=== PATIENT | male | born 2000 | race Caucasian/White ===

== ENCOUNTER 2020-02-18 07:51 | Outpatient (REF) | payer OTHER, SELFPAY | END 2020-02-18 07:52 | disposition home or self-care (01) | LOC: HO.LAB 07:51 | PROVIDERS: PCP Internal Medicine; Visit Provider Internal Medicine | DX: Z20.828 Contact with and (suspected) exposure to other viral communicable diseases (principal) | CPT/HCPCS: C9803; U0003 ==

== ENCOUNTER 2020-05-07 16:27 | Outpatient (REF) | payer OTHER, SELFPAY ==
--- NOTE | ~2020-05-07 | XR_ITS ---
EXAMINATION: XR ABDOMEN KUB CLINICAL INDICATION: R10.9 - Unspecified abdominal pain COMPARISON: None TECHNIQUE: 2 views of the abdomen are obtained. FINDINGS: There is gaseous distention of the stomach with retained contents suggested left upper quadrant. There is moderate stool throughout the colon down to the rectum. There is no gaseous dilatation of the small or large bowel. No visible urinary tract calculi. Bony structures are unremarkable. XR/XR KUB IMPRESSION: 1. Gaseous distention of the stomach with probable retained contents. 2. Moderate stool throughout colon down to rectum. No small or large bowel distention.
== END 2020-05-07 16:28 | disposition home or self-care (01) ==
LOC: HO.HMGCX 16:27
PROVIDERS: PCP Internal Medicine; Visit Provider Nurse Practitioner Family
DX: R10.9 Unspecified abdominal pain (principal)
CPT/HCPCS: 74018

== ENCOUNTER 2021-03-09 10:25 | Outpatient (REF) | payer OTHER, SELFPAY | END 2021-03-09 10:26 | disposition home or self-care (01) | LOC: HO.HMGCLDS 10:25 | PROVIDERS: Visit Provider Internal Medicine | DX: Z20.822 Contact with and (suspected) exposure to COVID-19 (principal) | CPT/HCPCS: C9803; U0003; U0005 ==

== ENCOUNTER 2021-10-14 17:10 | Emergency (ER) | payer OTHER, SELFPAY ==
[2021-10-14 17:48] VITALS: BP 117/73; PULSE 70; RESP 18; TEMP 37.6; O2SAT 97; BMI 16.9
[2021-10-14 18:08] LABS: Appearance Urine CLEAR; Color Urine YELLOW; Glucose Urine UA NEG (NEG); Leukocyte Esterase Urine NEG (NEG); Nitrite Urine NEG (NEG); Urine Blood NEG (NEG); Urine Ketones NEG (NEG); Urine Protein NEG (NEG-TRACE)
[2021-10-14 18:23] LABS: Hematocrit 44.8 % (42.0-52.0); Hemoglobin 14.6 g/dl (14.0-18.0); Mean Corpuscular HGB Conc 32.6 g/dl (31.0-36.0); Mean Corpuscular Hemoglobin 26.6 pg (27.0-33.0); Mean Corpuscular Volume 81.8 fL (80.0-98.0); Mean Platelet Volume 9.7 fL (9.4-12.4); Platelet Count 304 X10*3/uL (160-400); Red Blood Count 5.48 X10*6/uL (4.60-5.80); Red Cell Distribution Width 13.6 % (11.0-16.0); White Blood Count 6.9 X10*3/uL (4.8-10.8)
[2021-10-14 18:32] LABS: Alanine Aminotransferase 222 U/L (0-40); Albumin Level 4.5 g/dL (3.5-5.0); Alkaline Phosphatase 78 U/L (39-117); Anion Gap 13 (12-20); Aspartate Amino Transferase 105 U/L (5-37); Bilirubin Total 0.6 mg/dL (0.0-1.0); Blood Urea Nitrogen 14 mg/dL (9-16); Calcium 9.3 mg/dL (8.4-10.2); Carbon Dioxide 26 mmol/L (22-29); Chloride 103 mmol/L (96-108); Creatinine Clr Calc Pharmacy 85.9; Estimated Glomerular Filt Rate > 60; Glucose Random 93 mg/dL (60-115); Lipase 30 U/L (8-78); Potassium 3.9 mmol/L (3.3-5.1); Sodium 138 mmol/L (135-145); Total Protein 8.4 g/dL (6.5-8.0)
[2021-10-14 19:09] LABS: Atypical Lymph Absolute Manual 1.3 x10*3/uL; Atypical Lymphs Percent Manual 19 % (0-6); Band Neutrophils Percent 0 % (3-5); Basophils Abs Manual 0.1 X10*3/uL (0.0-0.2); Basophils Percent Manual 1 % (0-2); Eosinophils Absolute Manual 0.1 X10*3/uL (0.0-0.4); Eosinophils Percent Manual 1 % (0-4); Lymphocytes Absolute Manual 2.3 X10*3/uL (1.2-4.9); Lymphocytes Percent Manual 33 % (20-40); Microcytosis 1+ (5-14) /OIF; Monocytes Absolute Manual 1.1 X10*3/uL (0.1-1.2); Monocytes Percent Manual 16 % (2-11); Neutrophils Absolute Manual 2.1 X10*3/uL (2.0-8.3); Neutrophils Percent Manual 30 % (45-73); Platelet Estimate NORMAL (NORMAL); Platelet Morphology Comment NORMAL; RBC Morphology NOTED
[2021-10-14 19:10] LABS: Burr Cells 1+ (0-2) /OIF; Ovalocytes 1+ (5-14) /OIF; Smudge Cells PRESENT; Tear Drop Cells 1+ (0-2) /OIF
[2021-10-14 20:57] LABS: SLIDE REVIEW VERIFIED
== END 2021-10-15 02:13 | disposition left against medical advice (07) ==
PROVIDERS: Emergency Provider Emergency Medicine; PCP Internal Medicine
DX: R10.10 Upper abdominal pain, unspecified (principal)
CPT/HCPCS: 36415; 80053; 81003; 83690; 85007; 85025; 85027; 99282; 99283

== ENCOUNTER 2023-08-15 12:29 | Outpatient (AMB) | payer OTHER, SELFPAY ==
[2023-08-15 13:12] VITALS: BP 120/72; PULSE 51; TEMP 36.6; O2SAT 96; BMI 16.9
--- NOTE | 2023-08-15 13:12 | AM.OFFWIN_ITS ---
Intake Vital Signs 08/15/23 13:12 Height 5 ft 11 in Weight 121 lb BMI 16.9 BP 120/72 Blood Pressure Location Lt brachial Position Sitting Pulse 51 Pulse Source Pulse Oximeter Temp 97.8 F Temp Source Temporal Artery Scan Pulse Oximetry (%) 96 Oxygen Delivery Method Room Air Intake Visit Reasons: EP Burning/discomfort sensation upper GI Intake Note: pt is here today for buring discomfort sensation upper GI started tuesday Patient Tobacco Use Status: Never used Tobacco Allergies No Known Allergies Allergy (Verified 08/15/23 13:15) Do you need a note to return to daycare/school/sports/work: Yes HPI HPI Comments History of Present Illness Details Patient is a 23-year-old male complaining of burning in his upper chest for 2 days. He denies any increase in gas, nausea vomiting or diarrhea. He states he used to take omeprazole daily because he was diagnosed with GERD but he has been off of it for a long period of time. He does admit to a diet of mostly fast food, soda and fried foods. He has not tried any [id number]-[id number] medications to make his symptoms better. States Dr. Youssef is his primary care doctor [facility] Social History Patient Tobacco Use Status: Never used Tobacco Review of Systems Const All systems reviewed & are unremarkable except as noted in HPI and below Physical Exam Vital Signs: Last Vital Signs Temp 97.8 F 08/15/23 13:12 Pulse 51 08/15/23 13:12 BP 120/72 08/15/23 13:12 Pulse Ox 96 08/15/23 13:12 Oxygen Delivery Method Room Air 08/15/23 13:12 BMI result Body Mass Index 16.9 Const General: cooperative, healthy appearing, comfortable, no acute distress and well developed Orientation/consciousness: patient oriented x3 Limitations: no limitations HEENT Head: Yes normal to inspection Eyes General: appearance normal, both eyes and all related structures Neck Neck: Yes normal visual inspection and Yes full ROM Resp Effort & Inspection: normal respiratory effort and able to speak in complete sentences Skin General skin exam: no rashes or lesions noted Neuro General: patient oriented x3 Extrem General: Yes normal to inspection Assessment & Plan Assessment & Plan (1) GERD (gastroesophageal reflux disease): Code(s): K21.9 - Gastro-esophageal reflux disease without esophagitis Plan: Gave patient prescription for 30 days of omeprazole and recommended improving his diet by eating less fast food, fried foods and soda and following up with his PCP, Dr. Youssef. Plan see above Medications: New omeprazole 20 mg PO DAILY 30 caps 0RF Coding Level of Care Code Est Pt Level 3 (47311) Diagnoses GERD (gastroesophageal reflux disease) K21.9
== END 2023-08-15 13:39 | disposition home or self-care (01) ==
PROVIDERS: PCP Internal Medicine; Visit Provider Physician Assistant
DX: K21.9 Gastro-esophageal reflux disease without esophagitis (principal)
CPT/HCPCS: 99213

== ENCOUNTER 2023-11-18 14:01 | Outpatient (AMB) | payer OTHER, SELFPAY ==
[2023-11-18 14:05] VITALS: BP 106/74; PULSE 62; TEMP 37.1; O2SAT 99; BMI 17.3
--- NOTE | 2023-11-18 14:05 | MHC.OFFWIV ---
Intake Vital Signs 11/18/23 14:05 Height 5 ft 11 in Weight 124 lb BMI 17.3 BP 106/74 Blood Pressure Location Lt brachial Position Sitting Pulse 62 Pulse Source Pulse Oximeter Temp 98.8 F Temp Source Oral Pulse Oximetry (%) 99 Oxygen Delivery Method Room Air Intake Visit Reasons: EP sore throat, chest tightness Intake Note: pt c/o sore throat and chest tightness. Started yesterday Patient Tobacco Use Status: Never used Tobacco Allergies No Known Allergies Allergy (Verified 11/18/23 14:06) Do you need a note to return to daycare/school/sports/work: Yes HPI HPI Comments History of Present Illness Details Patient is a 23-year-old male with a past medical history of asthma who use a rescue inhaler complaining of 2 days of a sore throat, a dry cough and chest tightness when he coughs. He states a co-worker was diagnosed with COVID recently and he was around this co-worker. He denies any sinus pain, ear pain, headaches, shortness of breath or fevers. He denies any head congestion or chest congestion and tells me he does have an albuterol inhaler at home that is not but he has not had to use it. [facility] Social History Patient Tobacco Use Status: Never used Tobacco Review of Systems Const All systems reviewed & are unremarkable except as noted in HPI and below Physical Exam Vital Signs: Last Vital Signs Temp 98.8 F 11/18/23 14:05 Pulse 62 11/18/23 14:05 BP 106/74 11/18/23 14:05 Pulse Ox 99 11/18/23 14:05 Oxygen Delivery Method Room Air 11/18/23 14:05 BMI result Body Mass Index 17.3 Const General: cooperative, healthy appearing, comfortable and no acute distress Orientation/consciousness: patient oriented x3 Limitations: no limitations HEENT Head: Yes normal to inspection Ears: hearing grossly normal bilaterally, external ears normal and TM's normal bilaterally (Scarring on right tympanic membrane) General nose exam: Normal external nose present, Normal nares present and No nasal discharge present Face and sinus: Yes normal facial exam and Yes sinuses nontender Mouth: Normal oral and palatal mucosa present and moist mucous membranes Throat: Yes tonsils normal, Yes uvula midline and Yes posterior oropharynx abnormal (Erythema) Eyes General: appearance normal, both eyes and all related structures Neck Neck: Yes normal visual inspection Resp Effort & Inspection: normal respiratory effort, able to speak in complete sentences, Actively coughing, no respiratory distress, not tachypneic, no tripod positioning and no use of accessory muscles Auscultation: clear to auscultation bilaterally Cardio Rate: regular rate Rhythm: regular rhythm Heart sounds: normal S1 and S2 Skin General skin exam: no rashes or lesions noted Neuro General: patient oriented x3 Extrem General: Yes normal to inspection and Yes no clubbing, cyanosis or edema Results AMB Rapid Strep AMB Rapid Strep Negative Last Edit by Emir Rothamn CMA on 11/18/23 14:20 Results Reviewed Results Reviewed: Laboratory Last Values Strep Scn Rapid Clinic Negative 11/18/23 14:19 Assessment & Plan Assessment & Plan (1) URI (upper respiratory infection): Code(s): J06.9 - Acute upper respiratory infection, unspecified Qualifiers: URI type: unspecified URI Qualified Code(s): J06.9 - Acute upper respiratory infection, unspecified Plan: Vital signs are stable, rapid strep in office was negative, no exudates on exam, lungs are also clear and patient is well-appearing. Recommended he wear a mask when he is around other people until he has a test results for the flu COVID and RSV. Likely a mild viral syndrome. Recommended he use [id number] medications to treat his symptoms as well as his inhaler when he is feeling that chest tightness Plan See above Orders: Orders SARS-CoV2/FLU/RSV Today J06.9 - Acute upper respiratory infection, unspecified AMB Rapid Strep Screen Today Z13.9 - Encounter for screening, unspecified Coding Level of Care Code Est Pt Level 3 (68372) Diagnoses Upper respiratory tract infection, unspecified type J06.9 URI type: unspecified URI
== END 2023-11-18 14:40 | disposition home or self-care (01) ==
PROVIDERS: PCP Internal Medicine; Visit Provider Physician Assistant
DX: J06.9 Acute upper respiratory infection, unspecified (principal); J02.9 Acute pharyngitis, unspecified
CPT/HCPCS: 87880; 99213

== ENCOUNTER 2023-11-18 14:19 | Outpatient (REF) | payer OTHER, SELFPAY ==
[2023-11-18 16:47] LABS: Influenza A PCR NEGATIVE (Negative); Influenza B PCR NEGATIVE (Negative); Resp Syncy Virus RNA Qual PCR NEGATIVE (Negative); SARS COV2 PCR INHOUSE NEGATIVE (Negative)
== END 2023-11-18 14:20 | disposition home or self-care (01) ==
LOC: HO.LAB 14:19
PROVIDERS: Visit Provider Physician Assistant
DX: J06.9 Acute upper respiratory infection, unspecified (principal)
CPT/HCPCS: 0241U

== ENCOUNTER 2023-11-23 10:40 | Outpatient (AMB) | payer OTHER, SELFPAY ==
[2023-11-23 10:45] VITALS: BP 102/74; PULSE 54; TEMP 36.9; O2SAT 99; BMI 17.3
--- NOTE | 2023-11-23 10:45 | MHC.OFFWIV ---
Intake Vital Signs 11/23/23 10:45 Height 5 ft 11 in Weight 124 lb BMI 17.3 BP 102/74 Blood Pressure Location Lt brachial Position Sitting Pulse 54 Pulse Source Pulse Oximeter Temp 98.4 F Temp Source Oral Pulse Oximetry (%) 99 Oxygen Delivery Method Room Air Intake Visit Reasons: EP headache, congestion, chest pressure, cough Intake Note: pt c/o headache, congestion, chest pressure and cough. Started last Tuesday. Covid Negative on 11/17 Patient Tobacco Use Status: Never used Tobacco Allergies No Known Allergies Allergy (Verified 11/23/23 10:45) Do you need a note to return to daycare/school/sports/work: Yes HPI HPI Comments History of Present Illness Details Patient is a 23-year-old male with a past medical history of asthma complaining of continued productive cough, shortness of, subjective fevers, fatigue and headaches. 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 He was tested for COVID on November 17 and was negative however her symptoms are getting worse. He is able to use his inhaler when he feels short of breath with great relief. He is able to eat and drink as well. He denies any nausea vomiting or diarrhea ear pain or sinus pain. [facility] Social History Patient Tobacco Use Status: Never used Tobacco Review of Systems Const All systems reviewed & are unremarkable except as noted in HPI and below Physical Exam Vital Signs: Last Vital Signs Temp 98.4 F 11/23/23 10:45 Pulse 54 11/23/23 10:45 BP 102/74 11/23/23 10:45 Pulse Ox 99 11/23/23 10:45 Oxygen Delivery Method Room Air 11/23/23 10:45 BMI result Body Mass Index 17.3 Const General: cooperative, healthy appearing, comfortable and no acute distress Orientation/consciousness: patient oriented x3 Limitations: no limitations HEENT Head: Yes normal to inspection Ears: hearing grossly normal bilaterally and external ears normal General nose exam: Normal external nose present, Normal nares present and No nasal discharge present Face and sinus: Yes normal facial exam and Yes sinuses nontender Mouth: Normal oral and palatal mucosa present and moist mucous membranes Throat: Yes tonsils normal, Yes uvula midline and Yes posterior oropharynx abnormal (Erythema) Eyes General: appearance normal, both eyes and all related structures Neck Neck: Yes normal visual inspection Resp Effort & Inspection: normal respiratory effort, able to speak in complete sentences, no respiratory distress, not tachypneic, no tripod positioning and no use of accessory muscles Auscultation: clear to auscultation bilaterally Cardio Rate: regular rate Rhythm: regular rhythm Heart sounds: normal S1 and S2 Skin General skin exam: no rashes or lesions noted Neuro General: patient oriented x3 Extrem General: Yes normal to inspection and Yes no clubbing, cyanosis or edema Assessment & Plan Assessment & Plan (1) URI (upper respiratory infection): Code(s): J06.9 - Acute upper respiratory infection, unspecified Qualifiers: URI type: unspecified URI Qualified Code(s): J06.9 - Acute upper respiratory infection, unspecified Plan: Vital signs are stable, patient is well-appearing, physical exam was unremarkable. We did retested for flu COVID and RSV and recommended adding Mucinex. Recommended continuing to use his inhaler as needed. Wrote work note to keep him out of work for the next 3 business days which brings him into the weekend back to work on November 27. Plan see above Coding Level of Care Code Est Pt Level 3 (25002) Diagnoses Upper respiratory tract infection, unspecified type J06.9 URI type: unspecified URI
== END 2023-11-23 11:13 | disposition home or self-care (01) ==
PROVIDERS: PCP Internal Medicine; Visit Provider Physician Assistant
DX: J06.9 Acute upper respiratory infection, unspecified (principal)

== ENCOUNTER 2023-11-23 10:40 | Outpatient (REF) | payer OTHER, SELFPAY ==
[2023-11-23 13:57] LABS: Influenza A PCR NEGATIVE (Negative); Influenza B PCR NEGATIVE (Negative); Resp Syncy Virus RNA Qual PCR NEGATIVE (Negative); SARS COV2 PCR INHOUSE NEGATIVE (Negative)
== END 2023-11-23 10:41 | disposition home or self-care (01) ==
LOC: HO.LAB 10:40
PROVIDERS: PCP Internal Medicine; Visit Provider Physician Assistant
DX: J06.9 Acute upper respiratory infection, unspecified (principal)
CPT/HCPCS: 0241U

== ENCOUNTER 2024-05-01 11:01 | Outpatient (AMB) | payer OTHER, SELFPAY ==
--- NOTE | 2024-05-01 11:17 | AM.OFFWIN_ITS ---
Intake Vital Signs 05/01/24 11:22 Weight 125 lb BP 104/68 Blood Pressure Location Lt brachial Position Sitting Pulse 58 Pulse Source Pulse Oximeter Pulse Oximetry (%) 98 Oxygen Delivery Method Room Air Intake Visit Reasons: EP very lightheaded, dizzy, weakness Intake Note: Patient here for dizzy, weakness and lightheaded that started today. He states he was at work and felt like this overwhelming hot flash and began to start to feel weak. Patient Tobacco Use Status: Never used Tobacco Allergies No Known Allergies Allergy (Verified 05/01/24 11:22) Do you need a note to return to daycare/school/sports/work: No HPI HPI Comments History of Present Illness Details History of Present Illness - The patient is a 24-year-old male pres enting with symptoms of dizziness, headache, and difficulty focusing vision. - Symptoms started 1 hour post-breakfast , which was heavy and carb-rich. - Experienced dizziness, headache, and f oggy vision lasting 45 minutes to an hour. - Drinking water alleviated dizziness, b ut headache and vision issues prolonged. - No associated symptoms like cough, fev er, cough, leg or arm weakness, nausea, vomiting, or diarrhea reported. - No personal or immediate family histor y of diabetes however 2 grandparents had diabetes with unknown type 1 or type 2. - No prior similar episodes reported, an d felt fine and back to his normal self at the time of visit. Physical Exam General: Cooperative, healthy appearing, comfortable, no acute distress and well developed Orientation: Patient oriented x3 Limitations: No limitations Head: Normal to inspection Ears: Hearing grossly normal bilaterally Nose: Normal external nose present Face and sinus: Normal facial exam Eyes: Appearance normal, both eyes and all related structures Neck: Normal visual inspection and Yes full ROM Respiratory: Normal respiratory effort and able to speak in complete sentences. Skin: No rashes or lesions noted Neuro: Patient oriented x3 Extremities: Normal to inspection [facility] Social History Patient Tobacco Use Status: Never used Tobacco Review of Systems Const All systems reviewed & are unremarkable except as noted in HPI and below Physical Exam Vital Signs: Last Vital Signs Pulse 58 05/01/24 11:22 BP 104/68 05/01/24 11:22 Pulse Ox 98 05/01/24 11:22 Oxygen Delivery Method Room Air 05/01/24 11:22 Neuro General: CN's II-XI intact bilaterally Cognition (Neuro): normal cognition Gait exam (Neuro): Normal gait present Results AMB Random Glucose (hemocue) AMB Random Glucose (hemocue) 96 mg/dL Last Edit by YAJAIRA Jordan 05/01/24 12:02 Assessment & Plan Assessment & Plan (1) Hypoglycemia: Code(s): E16.2 - Hypoglycemia, unspecified Plan: VSS, pt well appearing, POC in office (3 hrs post-prandial and 2 hours post- episode) is 96. The suspected issue is hypoglycemia, potentially triggered by a carbohydrate-heavy breakfast leading to an insulin surge. The dietary intake and symptoms point towards low blood sugar, absent other alarming symptoms like infection or weakness. Advised that patient try to eat equal parts protein and fat and carbs at each meal and eat consistently, timing zamora. If he feels this again he can try a simple carb like OJ or jelly beans. If his symptoms worsen or he has visual changes, he should go to the emergency department. He should also follow up with his PCP if his symptoms continue. Patient was informed and verbally consented to the use of an ambient scribe for clinic note documentation during this visit. Orders: Orders AMB Random Glucose (hemocue) Today Z13.9 - Encounter for screening, unspecified Coding Level of Care Code Est Pt Level 4 (37179) Diagnoses Hypoglycemia E16.2
[2024-05-01 11:22] VITALS: BP 104/68; PULSE 58; O2SAT 98
== END 2024-05-01 12:23 | disposition home or self-care (01) ==
PROVIDERS: PCP Internal Medicine; Visit Provider Physician Assistant
DX: E16.2 Hypoglycemia, unspecified (principal); Z13.9 Encounter for screening, unspecified

== ENCOUNTER → 2024-05-01 11:01 | Outpatient (BNVA) | payer OTHER, SELFPAY | PROVIDERS: PCP Internal Medicine | DX: E16.2 Hypoglycemia, unspecified (principal) | CPT/HCPCS: 82948 ==

== ENCOUNTER 2024-08-18 09:02 | Outpatient (AMB) | payer OTHER, SELFPAY ==
[2024-08-18 09:08] VITALS: BP 104/70; PULSE 72; TEMP 36.7; O2SAT 98; BMI 16.9
--- NOTE | 2024-08-18 09:08 | AM.OFFWIN_ITS ---
Intake Vital Signs 3 08/18/24 09:08 Height 5 ft 11 in Weight 121 lb BMI 16.9 BP 104/70 Blood Pressure Location Rt brachial Position Sitting Pulse 72 Pulse Source Pulse Oximeter Temp 98.0 F Temp Source Oral Pulse Oximetry (%) 98 Oxygen Delivery Method Room Air Intake Visit Reasons: EP RT leg pain, into upper calf Patient Tobacco Use Status: Never used Tobacco Accompanied by: Self / Same As Patient Allergies No Known Allergies Allergy (Verified 08/18/24 09:12) Medication List - Last Reconciled 08/18/24 by Diamond Vale [facility]- albuterol sulfate 90 mcg/actuation (ProAir HFA) 2 puffs inhalation Q6H PRN ibuprofen mg PO PRN omeprazole 20 mg PO DAILY PRN Do you need a note to return to daycare/school/sports/work: Yes HPI HPI Comments 2 History of Present Illness0 Details History of Present Illness - The patient is a 24-year-old male pres enting with right leg pain. - Pain started two weeks ago, located in the posterior upper thigh and radiating to back of the knee - No preceding injury reported. - Suspected initial sciatica symptoms no cristino. - Nighttime sharp pain, impairs ability to stretch leg and maintain balance. - No fever, chills, or back pain reporte d. - Topical creams applied, no significant relief. - No swelling or prior surgery on the ri ght leg. Review of Systems - Musculoskeletal: Reports right leg dar n radiating from thigh to calf. Denies swelling. - General: Denies fever and chills. - Neurological: Denies low back pain. Physical Exam General: Thin, frail, NAD . Head: Normocephalic, atraumatic. Eyes: Pupils are equal, round and reactive to light and accommodation. Musculoskeletal: RLE: No swelling noted. No pain when performing a bridge exercise. No rash or bruising observed. Pulses: Peripheral pulses are equal and palpable bilaterally. Extremities: No clubbing, cyanosis nor edema is noted. Psych: Mood and affect appropriate. Diagnostic results See below femoroacetabular impingement Discussion Notes Uncertain etiology of his pain. We agreed on conducting an X-ray of the right hip and pelvis to evaluate any underlying issues. I set up the patient's access to the patient portal to facilitate viewing results and follow-up plans. I explained the process for obtaining the X-ray and the significance of looking for abnormalities. If the X-ray is normal, we will further evaluate the cause of pain. I also addressed the option of prescribing medication for discomfort after reviewing the imaging results. Follow-up care will be communicated via the patient portal. Assessment and Plan 1. Right leg pain - X-ray of right hip and pelvis ordered. - Patient portal set up for result revie w. - Further evaluation based on X-ray outc ome. - Consider orthopedic referral if indica cristino. 2. femoroacetabular impingement Refer to PT NSAIDs Supportive Care Patient Instructions - If pain worsens or you have any questi ons, call the clinic. Consent Patient was informed and verbally consented to the use of an ambient scribe for clinic note documentation during this visit. Total time spent caring for the patient today was 30 minutes. This includes time spent before the visit reviewing the chart, time spent during the visit, and time spent after the visit on documentation, reviewing laboratory results, diagnostic imaging, medications, performing a medically necessary evaluation, counseling on diagnoses, care coordination, ordering appropriate tests, ordering appropriate medications, review of tests performed by other providers, reporting test results with the patient, communication with other healthcare providers. [facility] Social History Patient Tobacco Use Status: Never used Tobacco Physical Exam Vital Signs: Last Vital Signs Temp 98.0 F 08/18/24 09:08 Pulse 72 08/18/24 09:08 BP 104/70 08/18/24 09:08 Pulse Ox 98 08/18/24 09:08 Oxygen Delivery Method Room Air 08/18/24 09:08 BMI result Body Mass Index 16.9 General: Yes no CVA tenderness Back/Spine/Pelvis Back: no CVA tenderness Thoracic/Lumbar Spine: thoracic and lumbar spine normal to inspection Sacroiliac joints: bilaterally nontender Back/spine/pelvis image: 2 1. pain with palpation and gluteal contraction 2. pain with SLR Results Reviewed Results Reviewed: [facility] [place] [facility] [address] [place] [address] XRay Report Signed Patient: Pramod Perera Jr MR#: [id number] : 2000 Acct:[id number] Age/Sex: 24 / M ADM Date: 08/18/24 Loc: [place] [place]: Diamond EVANS Ordering Physician: Diamond Vale Date of Service: 08/18/24 Procedure(s): XR pelvis min 3V Accession Number(s): [id number] cc: Diamond Vale; Po,Elli Morton MD~ CLINICAL HISTORY: M25.551 - Pain in right hip Three view pelvis Comparison: CR - XR HIP RT MIN 2V - 08/18/24 09:40 EDT Findings: The lumbosacral junction is maintained. The bilateral sacroiliac joints and pubic symphysis are maintained. The bilateral hip joints are maintained. No significant osteoarthritis. Loss of offset at the lateral femoral head/neck junctions bilaterally. No evidence of fracture or femoral head avascular necrosis. IMPRESSION: Loss of offset at the lateral femoral head/neck junctions bilaterally, which may predispose to cam-type femoroacetabular impingement. No acute findings. This document has been electronically signed by: Silviano Scott DO on 08/18/2024 10:22:08 Dictated By: Silviano Scott MD Signed By: <Electronically signed by Silviano Scott MD in OV> 08/18/24 1022 Assessment & Plan Assessment & Plan (1) Right hip pain: Code(s): M25.551 - Pain in right hip (2) Gluteal pain: Code(s): M79.18 - Myalgia, other site (3) Femoroacetabular impingement of right hip: Code(s): M25.851 - Other specified joint disorders, right hip Plan . Orders: Orders 2 XR pelvis min 3V Today M25.551 - Pain in right hip, M79.18 - Myalgia, other site XR hip RT min 2V Today M25.551 - Pain in right hip, M79.18 - Myalgia, other site PT Evaluation and Treatment Today M25.551 - Pain in right hip, M25.851 - Other specified joint disorders, right hip, M79.18 - Myalgia, other site Medications: New 2 ibuprofen 600 mg PO Q8H 7 days PRN 21 tabs 0RF pain Coding Level of Care Code Est Pt Level 4 (27381) Diagnoses Right hip pain M25.551 Gluteal pain M79.18 Femoroacetabular impingement of right hip M25.851
== END 2024-08-18 09:51 | disposition home or self-care (01) ==
PROVIDERS: PCP Internal Medicine; Visit Provider Nurse Practitioner Family
DX: M25.551 Pain in right hip (principal); M79.18 Myalgia, other site; M25.851 Other specified joint disorders, right hip

== ENCOUNTER 2024-08-18 09:02 | Outpatient (REF) | payer OTHER, SELFPAY ==
--- NOTE | ~2024-08-18 | XR_ITS ---
CLINICAL HISTORY: M25.551 - Pain in right hip Three view pelvis Comparison: CR - XR HIP RT MIN 2V - 08/18/24 09:40 EDT Findings: The lumbosacral junction is maintained. The bilateral sacroiliac joints and pubic symphysis are maintained. The bilateral hip joints are maintained. No significant osteoarthritis. Loss of offset at the lateral femoral head/neck junctions bilaterally. No evidence of fracture or femoral head avascular necrosis. IMPRESSION: Loss of offset at the lateral femoral head/neck junctions bilaterally, which may predispose to cam-type femoroacetabular impingement. No acute findings. This document has been electronically signed by: Silviano Scott DO on 08/18/2024 10:22:08
--- NOTE | ~2024-08-18 | XR_ITS ---
CLINICAL HISTORY: M25.551 - Pain in right hip Two view right hip Comparison: CR - XR PELVIS MIN 3V - 08/18/24 09:43 EDT Findings: The right hip joint is maintained. No significant osteoarthritis. Loss of offset at the lateral femoral head/neck junction. No evidence of fracture or femoral head avascular necrosis. IMPRESSION: Loss of offset at the lateral femoral head/neck junction, which may predispose to cam-type femoroacetabular impingement. No acute findings. This document has been electronically signed by: Silviano Scott DO on 08/18/2024 10:13:46
== END 2024-08-18 09:03 | disposition home or self-care (01) ==
LOC: HO.HMGCX 09:02
PROVIDERS: PCP Internal Medicine; Visit Provider Nurse Practitioner Family
DX: M25.551 Pain in right hip (principal); M79.18 Myalgia, other site; M25.851 Other specified joint disorders, right hip
CPT/HCPCS: 72190; 73502

== ENCOUNTER → 2024-08-18 09:27 | Outpatient (BNV) | payer OTHER, SELFPAY | PROVIDERS: PCP Internal Medicine; Visit Provider Radiology Diagnostic Radiology | DX: M24.851 Other specific joint derangements of right hip, not elsewhere classified (principal) | CPT/HCPCS: 72190; 73502 ==